=== PATIENT | female | born 1975 | race African-American/Black ===

== ENCOUNTER 2024-10-18 00:10 | Emergency (ER) | payer OTHER ==
[2024-10-18 00:23] VITALS: BP 168/107; PULSE 71; RESP 18; TEMP 97.7; BMI 29.2
== END 2024-10-18 01:40 | disposition home or self-care (01) ==
LOC: JER 00:10
DX: R94.31 Abnormal electrocardiogram [ECG] [EKG] (principal); R06.02 Shortness of breath
CPT/HCPCS: 93005; 93010; 99283-25

== ENCOUNTER 2025-06-01 01:38 | Emergency (ER) | payer SELFPAY ==
[2025-06-01 02:05] VITALS: BP 158/89; PULSE 85; RESP 17; TEMP 97.9; BMI 28.3
[2025-06-01] MEDS ORDERED: DIPHTH,PERTUSS(ACELL),TET 0.5 ML DISP.SYRIN IM ONE (02:52)
[2025-06-01] MEDS: DIPHTH,PERTUSS(ACELL),TET 0.5 ML DISP.SYRIN IM ONE (02:56)
== END 2025-06-01 03:58 | disposition home or self-care (01) ==
LOC: JER 01:38
PROC: 0HQ1XZZ Repair Face Skin, External Approach (ICD-10-PCS; principal; 2025-06-01)
DX: S01.112A Laceration without foreign body of left eyelid and periocular area, initial encounter (principal); Y04.8XXA Assault by other bodily force, initial encounter; Y92.009 Unspecified place in unspecified non-institutional (private) residence as the place of occurrence of the external cause
CPT/HCPCS: 70450-TC; 70486-TC; 72125-TC; 99284-25